=== PATIENT | female | born 1980 | race Caucasian/White ===

== ENCOUNTER 2016-12-15 04:25 | Emergency (ER) | payer OTHER ==
[~2016-12-15] VITALS: Ht 175.3 cm; Wt 65.8 kg
--- NOTE | 2016-12-15 04:25 | NUR ---
0418- PT [facility] BLS. TAKEN TO BED 5
[2016-12-15 04:26] VITALS: BP 108/67
--- NOTE | 2016-12-15 04:35 | NUR ---
PT IS 36/F BIBA TO ED WITH C/O L HIP PAIN S/P FALL AT [facility] X 2100 TONIGHT. PT C/O PAIN TO L HIP AND L FOOT, DENIES ANY LOC. REFUSES TO MOVE L LEG. VSS. CHARGE NURSE MADE AWARE. DENIES V/D; SKIN IS PINK/WARM/DRY; AAOX4. LUNGS CLEAR BL; HR EVEN AND REGULAR; PT DENIES ANY FEVER, CP, SOB, OR COUGH AT THIS TIME; PATIENT STATES PAIN OF 10/10 AT THIS TIME; VSS; PATIENT POSITIONED FOR COMFORT; HOB ELEVATED; BEDRAILS UP X2; BED DOWN. ER MD MADE AWARE OF PT STATUS.
--- NOTE | 2016-12-15 04:48 | NUR ---
Dr. Baez evaluating patient at bedside.
[2016-12-15] MEDS ORDERED: fentaNYL 0.05 MG/ML VIAL IVP ONE ×2 (04:55→08:15)
[2016-12-15] MEDS ORDERED: NACL 0.9% 1,000 ML IV ONE ×2 (04:55→09:25)
--- NOTE | 2016-12-15 05:10 | NUR ---
X-Ray at bedside.
[2016-12-15] MEDS ORDERED: diphenhydrAMINE 50 MG/ML VIAL IVP ONE (05:15)
[2016-12-15] MEDS ORDERED: LORazepam 2 MG/ML VIAL IVP ONE ×2 (05:50→09:25)
--- NOTE | 2016-12-15 06:00 | NUR ---
PATIENT DOESNT KNOW HER HOME MEDS, ADVISED HER TO ASK THE FAMILY MEMBERS TO BRING HERE IN THE HOSPITAL.
[2016-12-15 06:03] LABS: BASOPHILS # (AUTO) 0.1 K/uL (0.00-0.22); BASOPHILS % (AUTO) 1.2 % (0.0-2.0); EOSINOPHILS # (AUTO) 0.2 K/uL (0-0.4); EOSINOPHILS % (AUTO) 2.7 % (0.0-4.0); HEMATOCRIT 39.2 % (36-48); HEMOGLOBIN 12.8 g/dL (12.0-16.0); LYMPHOCYTES # (AUTO) 0.7 K/uL (2.5-16.5); LYMPHOCYTES % (AUTO) 8.3 % (20.5-51.1); MEAN CORPUSCULAR HEMOGLOBIN 29 pg (27-31); MEAN CORPUSCULAR HGB CONC 33 g/dL (33-37); MEAN CORPUSCULAR VOLUME 89 fL (80-94); MONOCYTES # (AUTO) 0.6 K/uL (0.8-1.0); MONOCYTES % (AUTO) 6.6 % (1.7-9.3); NEUTROPHILS # (AUTO) 6.9 K/uL (1.8-7.7); NEUTROPHILS % (AUTO) 81.2 % (42.2-75.2); PLATELET COUNT (AUTO) 398 K/uL (140-450); RED BLOOD CELL COUNT(AUTO) 4.43 MIL/uL (4.20-5.40); RED CELL DISTRIBUTION WIDTH 15.8 % (11.6-13.7)
[2016-12-15 06:15] LABS: ANION GAP 12.6 (8-16); CALCIUM 8.4 mg/dL (8.5-10.1); CARBON DIOXIDE 26.2 mmol/L (21-32); CREATININE 0.6 mg/dL (0.6-1.3); POTASSIUM 3.8 mmol/L (3.5-5.1)
[2016-12-15 06:19] LABS: INR 1.1 (0.8-1.2); PARTIAL THROMBOPLASTIN TIME 25.5 secs (22-35.6)
--- NOTE | 2016-12-15 06:19 | NUR ---
PT RESTING IN BED. NO SOB NOTED. WILL CONTINUE TO MONITOR
[2016-12-15 06:21] LABS: ALBUMIN 3.8 g/dL (3.4-5.0); TOTAL BILIRUBIN 0.3 mg/dL (0.0-1.0); TOTAL PROTEIN, SERUM 7.2 g/dL (6.4-8.2)
[2016-12-15 06:24] LABS: WHITE BLOOD COUNT (AUTO) 8.5 K/uL (4.8-10.8)
--- NOTE | 2016-12-15 07:56 | NUR ---
Patient to be transferred to [facility]. Is being transferred due to HIGHER LEVEL OF CARE. Receiving facility has accepting physician and available space. ER physician has signed transfer form. Patient or responsible republican has agreed to transfer and signed form. Patient belongings inventoried and will be sent with patient. Copy of nursing notes, lab reports, EKG, Physicians Orders and X-rays to be sent with patient. Report called to CLEMENTE HINES at receiving facility. Ambulance service has been called for transfer. ETA is 90 MIN.
--- NOTE | 2016-12-15 08:55 | NUR ---
# 16 FR Isabel catheter with 200 ml utilizing sterile technique. Immediate return of ml200 urine noted. Bedside drainage bag placed below level of bladder. Urine sample collected and sent to lab. Pt tolerated procedure .
[2016-12-15] MEDS ORDERED: HYDROmorphone PFS 2 MG/ML SYR IVP ONE (09:00)
[2016-12-15] MEDS ORDERED: hydrOXYzine 50 MG/ML VIAL IM ONE (09:00)
[2016-12-15 09:12] LABS: APPEARANCE,URINE CLEAR (CLEAR); BILIRUBIN,URINE NEGATIVE (NEGATIVE); BLOOD, URINE NEGATIVE (NEGATIVE); COLOR,URINE YELLOW (YELLOW); LEUKOCYTE ESTERASE ,URINE NEGATIVE (NEGATIVE); NITRITE, URINE NEGATIVE (NEGATIVE); PH,URINE 7.5 (5.0-9.0); PROTEIN,URINE NEGATIVE (NEGATIVE); UGLUCOSE NEGATIVE (NEGATIVE); UROBILINOGEN,URINE 0.2 EU/dL (0.2 - 1)
--- NOTE | 2016-12-15 10:50 | NUR ---
EMPTIED 1400 CC OF URINE BEFORE D/C TRANSFERRED TO [facility]IA [facility] BY JUANI
[2016-12-15 10:53] VITALS: BP 109/71
== END 2016-12-15 10:53 | disposition short-term general hospital (02) ==
LOC: MED 04:25
CPT/HCPCS: 36415; 73502; 80053; 81003; 81025; 84703; 85025; 85610; 85730; 96361; 96374; 96375; 96376; 99285; J1170; J1200; J2060; J3010; J3410; J7030; Q0092